=== PATIENT | male | born 1935 | race Caucasian/White ===

== ENCOUNTER → 2016-10-02 | Outpatient (CLI) | payer MEDICARE, BC ==
--- NOTE | 2016-10-02 13:22 | XR ---
EXAMINATION TYPE: XR chest 2V DATE OF EXAM: 10/02/2016 12:23 PM COMPARISON: 06/17/2016 INDICATION: Cough and congestion x1 week TECHNIQUE: Frontal and lateral views of the chest are obtained. FINDINGS: The heart size is normal. The pulmonary vasculature is normal. The lungs are clear. IMPRESSION: 1. No acute pulmonary process.
== END | disposition home or self-care (01) ==
LOC: RADXRMAIN 12:05
PROVIDERS: ATTEND Internal Medicine
DX: R05 Cough (principal); R50.9 Fever, unspecified
CPT/HCPCS: 71020

== ENCOUNTER → 2017-01-12 | Outpatient (CLI) | payer MEDICARE, BC ==
--- NOTE | 2017-01-12 08:28 | CT ---
EXAMINATION TYPE: CT brain wo con DATE OF EXAM: 01/12/2017 7:12 AM COMPARISON: 06/17/2016 and 06/09/2014. HISTORY: 81-year-old male with head Injury TECHNIQUE: Examination was done in axial plane without intravenous contrast. Coronal and sagittal r econstructions performed. CT DLP: 1072.3 mGycm Automated exposure control for dose reduction was used. FINDINGS: There is no evidence of acute intracranial hemorrhage, acute ischemic changes, mass, mass-effect, or extra-axial fluid collection. There is no effacement of cerebral sulci or basal subarachnoid cister ns. There is no midline shift. Moctezuma-white matter distinction is preserved. Stable mild hydrocephalus likely secondary to central cerebral atrophy. Moderate confluent white rachele er hypodensities are also redemonstrated. Redemonstrated lobulated soft tissue mass located intraconal lateral right orbit with mild secondary proptosis. This measures 2.2 cm AP by 2.3 cm craniocaudal by 1.6 cm wide and is not significantly renetta nged from 06/17/2016. The report from orbit MRI 06/25/2014 gives the favored differential of a vascula r malformation. A 1.5 cm lucent lesion within the right calvarium is unchanged from 06/09/2014 compatible with a maria gn etiology. Moderate mucosal thickening left maxillary sinus possibly with a trace air-fluid level. Rightward manuel al septal deviation. Mastoid air cells well pneumatized. IMPRESSION: 1. No acute intracranial abnormality seen. Mild hydrocephalus likely on an ex vacuo basis from centra l cerebral atrophy is unchanged as are the confluent changes of chronic small vessel ischemic disease . 2. Moderate chronic left maxillary sinus disease. Trace air-fluid level could represent superimposed acute sinusitis. 3. 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
== END | disposition home or self-care (01) ==
LOC: RADCTMAIN 06:47
PROVIDERS: ATTEND Internal Medicine
DX: S09.90XA Unspecified injury of head, initial encounter (principal); G91.9 Hydrocephalus, unspecified; G31.9 Degenerative disease of nervous system, unspecified; M89.8X8 Other specified disorders of bone, other site; J34.9 Unspecified disorder of nose and nasal sinuses
CPT/HCPCS: 70450

== ENCOUNTER 2017-01-21 14:29 | Inpatient (IN) | payer MEDICARE, BC ==
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
[2017-01-21] MEDS: IOHEXOL 350 MG/ML 25 ML BOTTLE (ORAL USE) PO PRN ×2 (16:37→17:44)
[2017-01-21] MEDS: SODIUM CHLORIDE 0.9% 1,000 ML IV SCH (16:38)
[2017-01-21 16:55] LABS: Basophils % (A) 0 %; Eosinophils # (A) 0.2 k/uL (0-0.7); Eosinophils % (A) 2 %; HCT 41.1 % (39.0-53.0); HDW 2.63; HGB 13.5 gm/dL (13.0-17.5); Luc # (Auto) 0.17; Luc % (Auto) 2; Lymphocytes # (A) 1.7 k/uL (1.0-4.8); Lymphocytes % (A) 16 %; MCH 28.1 pg (25.0-35.0); MCHC 32.9 g/dL (31.0-37.0); MCV 85.4 fL (80.0-100.0); Monocytes # (A) 0.6 k/uL (0-1.0); Monocytes % (A) 6 %; Neutrophils % (A) 75 %; RBC 4.82 m/uL (4.30-5.90); RDW 13.6 % (11.5-15.5); WBC 10.7 k/uL (3.8-10.6); WBC (Perox) 10.53
[2017-01-21 17:06] LABS: INR 3.7 (<1.1); Prothrombin Time 35.6 sec (9.0-12.0)
[2017-01-21 17:44] LABS: ALT 19 U/L (21-72); AST 19 U/L (17-59); Alkaline Phosphatase 101 U/L (38-126); Amylase 47 U/L (30-110); Anion Gap 12 mmol/L; Blood Urea Nitrogen 14 mg/dL (9-20); Calcium 9.9 mg/dL (8.4-10.2); Carbon Dioxide 28 mmol/L (22-30); Chloride 97 mmol/L (98-107); Glucose 120 mg/dL (74-99); Non-African American GFR(MDRD) >60 (>60 ml/min/1.73 sqM); Potassium 4.3 mmol/L (3.5-5.1); Sodium 137 mmol/L (137-145); Total Protein 6.9 g/dL (6.3-8.2)
[2017-01-21] MEDS ORDERED: ALBUTEROL NEBULIZED 2.5 MG/3 ML INHALATION PRN (18:20)
[2017-01-21] MEDS ORDERED: NITROGLYCERIN SL TABS 0.4 MG TAB SUBLINGUAL PRN (18:20)
[2017-01-21] MEDS: FUROSEMIDE 20 MG TAB PO SCH (19:33)
--- NOTE | 2017-01-21 19:36 | CT ---
EXAMINATION TYPE: CT abdomen pelvis wo con DATE OF EXAM: 01/21/2017 COMPARISON: NONE HISTORY: Pain FINDINGS: LUNG BASES: No evidence for nodule. No evidence for infiltrate. Moderate sliding-type hiatal hernia w ith gastroesophageal reflux. There is evidence of cardiomegaly. LIVER/GB: The gallbladder is unremarkable. Nonspecific lesion of decreased attenuation within the ant erior segment right hepatic lobe measuring 1.1 cm. Metastatic lesion is not excluded. PANCREAS: There is a large pancreatic body mass measuring at least 9.0 x 5.5 cm. A degree of infiltr ation into the adjacent stomach is difficult to exclude. Additional mass in the region of the pancrea tic tail measures 4 cm this may reflect a pancreatic lesion or adenopathy. There are surrounding gianluca pancreatic lymph nodes identified. There may be partial encasement of the SMA. Periportal adenopathy is suspected. Lack of contrast limits evaluation. SPLEEN: No evidence for splenomegaly. No intrasplen ic lesions seen. ADRENALS: No adrenal nodules identified. No evidence for thickening. KIDNEYS: No evidence for renal mass. No nephrolithiasis. No hydronephrosis. BOWEL: Appendix has a normal appearance. No evidence of bowel obstruction. No inflammatory process. Lymph nodes: No evidence for adenopathy greater than 1 cm. Abdominal aorta: Atheromatous changes seen. No evidence for aneurysm. Genital organs: No significant abnormality. Other: Fat-containing inguinal hernias noted.. Multiple lytic lesions of the visualized thoracic and lumbar spines may reflect metastatic disease. IMPRESSION: 1. LARGE PANCREATIC BODY MASS WITH PERIPANCREATIC AND PERIPORTAL ADENOPATHY. ADDITIONAL MASS OR ADENO FLAKITO IN THE REGION OF THE PANCREATIC TAIL. INFILTRATION INTO THE STOMACH IS DIFFICULT TO EXCLUDE PAR TIAL ENCASEMENT OF THE SMA SUSPECTED. 2. I CANNOT EXCLUDE METASTATIC DISEASE TO THE LIVER WITH SOLITARY LESION IDENTIFIED. 3. I CANNOT EXCLUDE METASTATIC DISEASE TO THE VISUALIZED THORACIC AND LUMBAR SPINE. 4. LARGE HIATAL HERNIA WITH GASTROESOPHAGEAL REFLUX.
[2017-01-21] MEDS: ATORVASTATIN 20 MG TAB PO SCH (20:11)
[2017-01-21] MEDS: MONTELUKAST 10 MG TAB PO SCH (20:11)
[2017-01-21] MEDS: DONEPEZIL 10 MG TAB PO SCH (20:11)
[2017-01-21] MEDS ORDERED: LACTULOSE 20 GM/30 ML CUP PO ONE (20:25)
[2017-01-21] MEDS ORDERED: LACTULOSE 20 GM/30 ML CUP PO PRN (22:02)
[2017-01-22] MEDS: ALLOPURINOL 300 MG TAB PO SCH (08:02)
[2017-01-22] MEDS: PANTOPRAZOLE 40 MG TABLET PO SCH (08:02)
[2017-01-22] MEDS: buPROPion XL 150 MG TAB.ER.24H PO SCH (08:02)
[2017-01-22] MEDS: LORATADINE 10 MG TAB PO SCH (08:03)
[2017-01-22] MEDS: METOPROLOL SUCCINATE (ER) 25 MG TAB.ER.24H PO SCH (08:03)
[2017-01-22] MEDS: THEOPHYLLINE 24 HOUR 300 MG CAP.ER.24H PO SCH (08:03)
[2017-01-22] MEDS: FUROSEMIDE 20 MG TAB PO SCH ×2 (08:03→16:41)
[2017-01-22] MEDS: LISINOPRIL 10 MG TAB PO SCH (08:03)
[2017-01-22] MEDS: POTASSIUM CHLORIDE ER 20 MEQ TAB.ER PO SCH (08:04)
[2017-01-22 08:15] LABS: Basophils % (A) 0 %; CH 27.5; CHCM 31.7; Eosinophils # (A) 0.3 k/uL (0-0.7); Eosinophils % (A) 3 %; HCT 40.9 % (39.0-53.0); HDW 2.55; HGB 12.6 gm/dL (13.0-17.5); Hypochromasia Slight; Luc # (Auto) 0.12; Luc % (Auto) 1; Lymphocytes # (A) 1.4 k/uL (1.0-4.8); Lymphocytes % (A) 15 %; MCH 26.7 pg (25.0-35.0); MCHC 30.7 g/dL (31.0-37.0); Mean Platelet Volume 7.4; Monocytes # (A) 0.6 k/uL (0-1.0); Monocytes % (A) 6 %; Neutrophils % (A) 75 %; RDW 13.7 % (11.5-15.5); WBC 9.3 k/uL (3.8-10.6); WBC (Perox) 9.42
[2017-01-22 08:22] LABS: INR 3.7 (<1.1); Prothrombin Time 36.3 sec (9.0-12.0)
[2017-01-22 08:28] LABS: AST 18 U/L (17-59); Alkaline Phosphatase 93 U/L (38-126); Anion Gap 8 mmol/L; Blood Urea Nitrogen 11 mg/dL (9-20); Calcium 9.3 mg/dL (8.4-10.2); Carbon Dioxide 31 mmol/L (22-30); Chloride 99 mmol/L (98-107); Glucose 102 mg/dL (74-99); Non-African American GFR(MDRD) >60 (>60 ml/min/1.73 sqM); Potassium 4.5 mmol/L (3.5-5.1); Sodium 138 mmol/L (137-145); Total Bilirubin 1.1 mg/dL (0.2-1.3); Total Protein 6.2 g/dL (6.3-8.2)
[2017-01-22 08:46] LABS: ALT 27 U/L (21-72)
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
[2017-01-22] MEDS: SENNOSIDES-DOCUSATE SODIUM 1 EACH TAB PO SCH ×2 (11:16→20:58)
[2017-01-22] MEDS: SODIUM CHLORIDE 0.9% 1,000 ML IV SCH (11:58)
[2017-01-22] MEDS: HYDROmorphone 1 MG/ML 1 ML SYRINGE IVP PRN ×2 (12:45→19:22)
[2017-01-22] MEDS ORDERED: ZOLPIDEM 5 MG TAB PO PRN (13:45)
[2017-01-22 14:21] VITALS: BMI 23.5
--- NOTE | 2017-01-22 15:50 | P.PN ---
Subjective Principal diagnosis: Pancreatic mass Patient is an 81-year-old male admitted yesterday with abdominal pain and constipation, computed tomography scan of the abdomen and pelvis revealed evidence of pancreatic mass with possible metastatic disease. Patient is being treated symptomatically. Oncology consultation was requested. On review of systems Patient is alert and oriented 3 There is no fever no chills no headaches no dizziness no cough He is complaining of abdominal pain and constipation Denies any chest pain or shortness of breath no nausea or vomiting no diarrhea and no urinary symptoms Objective - Vital Signs Vital signs: Vital Signs Temp 97.7 F 01/22/17 14:56 Pulse 51 L 01/22/17 14:56 Resp 16 01/22/17 14:56 BP 100/59 01/22/17 14:56 Pulse Ox 97 01/22/17 14:56 Intake & Output 01/21/17 01/22/17 01/22/17 18:59 06:59 18:59 Intake Total 800 400 Balance 800 400 Weight 74.389 kg 74.389 kg Intake: IV 400 Sodium Chloride 0.9% 1, 400 000 ml @ 50 mls/hr IV . Q20H GLO Rx#:[id number] Intake, IV Titration 550 Amount Sodium Chloride 0.9% 1, 550 000 ml @ 50 mls/hr IV . Q20H GLO Rx#:[id number] Oral 250 Other: # Voids 1 - Exam HEENT head normocephalic and atraumatic Neck is supple no JVD no goiter no lymphadenopathy Chest exam reveals a few scattered rhonchi no wheezing Cardiac exam reveals regular heart sounds no gallops no murmurs Abdomen is soft with tenderness in the epigastric area no organomegaly no palpable masses was normal bowel sounds Extremity exam reveals no edema no cyanosis or clubbing - Labs CBC & Chem 7: 01/22/17 07:45 01/22/17 07:45 Labs: Abnormal Lab Results - Last 24 Hours (Table) 01/21/17 01/21/17 01/21/17 Range/Units 16:30 16:30 16:30 WBC 10.7 H (3.8-10.6) k/uL Hgb (13.0-17.5) gm/dL MCHC (31.0-37.0) g/dL Neutrophils # 8.0 H (1.3-7.7) k/uL PT 35.6 H (9.0-12.0) sec Chloride 97 L (98-107) mmol/L Carbon Dioxide (22-30) mmol/L Glucose 120 H (74-99) mg/dL ALT 19 L (21-72) U/L Total Protein (6.3-8.2) g/dL Lipase 339 H (23-300) U/L Carcinoembryonic Ag (0.0-5.0) ng/mL 01/22/17 01/22/17 01/22/17 Range/Units 07:45 07:45 07:45 WBC (3.8-10.6) k/uL Hgb 12.6 L (13.0-17.5) gm/dL MCHC 30.7 L (31.0-37.0) g/dL Neutrophils # (1.3-7.7) k/uL PT 36.3 H (9.0-12.0) sec Chloride (98-107) mmol/L Carbon Dioxide 31 H (22-30) mmol/L Glucose 102 H (74-99) mg/dL ALT (21-72) U/L Total Protein 6.2 L (6.3-8.2) g/dL Lipase (23-300) U/L Carcinoembryonic Ag (0.0-5.0) ng/mL 01/22/17 Range/Units 07:45 WBC (3.8-10.6) k/uL Hgb (13.0-17.5) gm/dL MCHC (31.0-37.0) g/dL Neutrophils # (1.3-7.7) k/uL PT (9.0-12.0) sec Chloride (98-107) mmol/L Carbon Dioxide (22-30) mmol/L Glucose (74-99) mg/dL ALT (21-72) U/L Total Protein (6.3-8.2) g/dL Lipase (23-300) U/L Carcinoembryonic Ag 5.5 H (0.0-5.0) ng/mL Assessment and Plan Plan: #1 pancreatic mass highly suspicious for pancreatic cancer await oncology consult Patient aware of computed tomography scan results, multiple family members in the room also aware, questions and answers to the best of my ability with the available information. Patient and family directed to ask further questions and when Dr. Patel evaluate patient. #2 underlying history of asthma stable at this time #3 underlying history of hypertension well-controlled Continue with current management will follow closely
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
[2017-01-22] MEDS ORDERED: RX INFO: IV CONTRAST WAS GIVEN 1 EACH MISC MISCELLANE PRN (18:36)
[2017-01-22] MEDS ORDERED: PHYTONADIONE ORAL 5 MG/5 ML ORAL.SYRG PO STA (18:36)
[2017-01-22] MEDS: ATORVASTATIN 20 MG TAB PO SCH (20:57)
--- NOTE | 2017-01-22 20:57 | CT ---
EXAMINATION TYPE: CT chest w con DATE OF EXAM: 01/22/2017 COMPARISON: 01/21/2017 HISTORY: Patient complains of some shortness of breath at time of exam. CT DLP: 492 mGycm, Automated exposure control for dose reduction was used. CONTRAST: Performed injected with 100 mL of Omnipaque 300. TECHNIQUE: Axial images were obtained at 5 mm thick sections. Reconstructed images are reviewed on [employer] computer in the coronal plane. FINDINGS: Portion of the thyroid visualized is normal. No suspicious lung nodules or focal infiltrates are present. No enlarged mediastinal or hilar adenopathy is evident. The ascending aorta diameter at the level o f the main pulmonary artery is 3.8 cm. The main pulmonary artery diameter at the bifurcation is 3.5 cm. Coronary artery calcifications present. Limited CT sections are obtained through the upper abdomen. There is a moderately large hiatal hernia present. There is some hypodensity within the right lobe liver which appears low-density measures 1. 1 cm likely represents a cyst. Adjacent is an irregular hypodensity more suspicious for a lesion porsche uring 3.9 x 2.3 cm. A similar appearing irregular hypodensities in the left lobe liver measuring 1.7 cm in diameter. Metastatic lesion should be considered. There is a large mass within the body and tail of the pancreas measuring 5.1 x 6.9 cm suspicious for a pancreatic cancer. IMPRESSIONS: 1. Moderate size hiatal hernia. 2. Suspicious hypodense lesions within the left and right lobes liver. Work up for metastatic disease is recommended. 3. No suspicious changes within the chest.
[2017-01-22] MEDS: MONTELUKAST 10 MG TAB PO SCH (20:58)
[2017-01-22] MEDS: DONEPEZIL 10 MG TAB PO SCH (20:58)
[2017-01-23] MEDS: HYDROmorphone 1 MG/ML 1 ML SYRINGE IVP PRN (03:15)
[2017-01-23] MEDS: SODIUM CHLORIDE 0.9% 1,000 ML IV SCH (05:32)
[2017-01-23 07:33] LABS: Basophils % (A) 0 %; CH 27.7; CHCM 31.6; Eosinophils # (A) 0.2 k/uL (0-0.7); Eosinophils % (A) 2 %; HDW 2.56; HGB 12.9 gm/dL (13.0-17.5); Hypochromasia Slight; Luc # (Auto) 0.13; Luc % (Auto) 1; Lymphocytes # (A) 1.5 k/uL (1.0-4.8); Lymphocytes % (A) 15 %; MCH 28.3 pg (25.0-35.0); MCHC 32.2 g/dL (31.0-37.0); MCV 87.7 fL (80.0-100.0); Mean Platelet Volume 7.3; Monocytes # (A) 0.6 k/uL (0-1.0); Monocytes % (A) 6 %; Neutrophils # (A) 7.4 k/uL (1.3-7.7); Neutrophils % (A) 76 %; RBC 4.56 m/uL (4.30-5.90); RDW 13.8 % (11.5-15.5); WBC 9.8 k/uL (3.8-10.6); WBC (Perox) 9.77
[2017-01-23 07:43] LABS: Prothrombin Time 19.4 sec (9.0-12.0)
[2017-01-23 07:52] LABS: ALT 26 U/L (21-72); AST 17 U/L (17-59); Alkaline Phosphatase 87 U/L (38-126); Anion Gap 7 mmol/L; Blood Urea Nitrogen 7 mg/dL (9-20); Calcium 9.4 mg/dL (8.4-10.2); Carbon Dioxide 31 mmol/L (22-30); Chloride 98 mmol/L (98-107); Glucose 110 mg/dL (74-99); Non-African American GFR(MDRD) >60 (>60 ml/min/1.73 sqM); Potassium 4.5 mmol/L (3.5-5.1); Sodium 136 mmol/L (137-145); Total Bilirubin 0.8 mg/dL (0.2-1.3); Total Protein 5.8 g/dL (6.3-8.2)
[2017-01-23] MEDS: LORATADINE 10 MG TAB PO SCH (08:11)
[2017-01-23] MEDS: LISINOPRIL 10 MG TAB PO SCH (08:11)
[2017-01-23] MEDS: ALLOPURINOL 300 MG TAB PO SCH (08:11)
[2017-01-23] MEDS: buPROPion XL 150 MG TAB.ER.24H PO SCH (08:11)
[2017-01-23] MEDS: METOPROLOL SUCCINATE (ER) 25 MG TAB.ER.24H PO SCH (08:11)
[2017-01-23] MEDS: FUROSEMIDE 20 MG TAB PO SCH ×2 (08:11→15:02)
[2017-01-23] MEDS: THEOPHYLLINE 24 HOUR 300 MG CAP.ER.24H PO SCH (08:11)
[2017-01-23] MEDS: PANTOPRAZOLE 40 MG TABLET PO SCH (08:11)
[2017-01-23] MEDS: SENNOSIDES-DOCUSATE SODIUM 1 EACH TAB PO SCH ×2 (08:12→20:09)
[2017-01-23] MEDS: POTASSIUM CHLORIDE ER 20 MEQ TAB.ER PO SCH (08:12)
[2017-01-23] MEDS: ONDANSETRON 4 MG/2 ML VIAL IVP PRN (09:47)
--- NOTE | 2017-01-23 10:24 | P.PN ---
Subjective 81-year-old male seen and examined this morning chief complaint nausea sensation patient did vomit once clear secretions. Patient's initial presentation abdominal pain constipation. Patient had a CAT scan of the abdomen pelvis it showed evidence of a pancreatic mass with possible metastatic disease. Patients being followed by oncology and GI service. Patient's current Coumadin is on hold GI service indicates they will proceed with an EGD once the INR is 1.5 or less. Colonoscopy is not planned at this time patient did have one done a few years ago. The INR this morning is 2.0 patient states abdominal discomfort persists but is improving Objective - Vital Signs Vital signs: Vital Signs Temp 97.6 F 01/22/17 23:00 Pulse 77 01/23/17 08:00 Resp 16 01/22/17 23:00 BP 118/60 01/22/17 23:00 Pulse Ox 98 01/22/17 23:00 Intake & Output 01/22/17 01/23/17 01/23/17 18:59 06:59 18:59 Intake Total 400 900 420 Output Total 201 Balance 400 699 420 Weight 74.389 kg Intake: IV 400 550 Sodium Chloride 0.9% 1, 400 550 000 ml @ 50 mls/hr IV . Q20H [facility] Rx#:[id number] Oral 350 420 Output: Urine 201 - Exam Physical exam 81-year-old male sitting up on the edge of the bed reports a nausea sensation did vomit once this morning clear secretions pleasant cooperative oriented 3 Lungs essentially clear adequate air movement on room air Heart S1-S2 audible and regular Abdomen slight tenderness to the abdominal wall bowel sounds present nausea sensation Extremities no edema noted - Labs CBC & Chem 7: 01/23/17 06:55 01/23/17 06:55 Labs: Abnormal Lab Results - Last 24 Hours (Table) 01/22/17 01/23/17 01/23/17 Range/Units 07:45 06:55 06:55 Hgb 12.9 L (13.0-17.5) gm/dL PT 19.4 H (9.0-12.0) sec Sodium (137-145) mmol/L Carbon Dioxide (22-30) mmol/L BUN (9-20) mg/dL Glucose (74-99) mg/dL Total Protein (6.3-8.2) g/dL Albumin (3.5-5.0) g/dL Carcinoembryonic Ag 5.5 H (0.0-5.0) ng/mL 01/23/17 Range/Units 06:55 Hgb (13.0-17.5) gm/dL PT (9.0-12.0) sec Sodium 136 L (137-145) mmol/L Carbon Dioxide 31 H (22-30) mmol/L BUN 7 L (9-20) mg/dL Glucose 110 H (74-99) mg/dL Total Protein 5.8 L (6.3-8.2) g/dL Albumin 3.3 L (3.5-5.0) g/dL Carcinoembryonic Ag (0.0-5.0) ng/mL Assessment and Plan Plan: Assessment and Plan Plan: #1 pancreatic mass highly suspicious for pancreatic cancer oncology recommendations reviewed recommending consulting pain service for possible celiac plexus block to help with cancer related pain Patient aware of computed tomography scan results, multiple family members in the room also aware, questions and answers to the best of my ability with the available information. Patient and family directed to ask further questions when Dr. Patel evaluate patient. #2 underlying history of asthma stable at this time #3 underlying history of hypertension well-controlled Continue with current management will follow closely Warfarin induced coagulopathy Atrial fibrillation rate controlled on anticoagulation currently on hold Acute constipation Pancreatic mass as evident on a CAT scan of the abdomen and pelvis Liver mass right lobe Await pain management eval possible celiac plexus block to help with cancer related pain Reviewed GIs recommendations they will proceed with an EGD evaluation once the INR is 1.5 or less. No colonoscopy planned at this time had a colonoscopy a few years ago The above dictated assessment and findings were discussed with dr teran . Impression and the plan of care have been dictated as directed. Melissa Durant nurse practitioner acting as a scribe for dr teran
[2017-01-23] MEDS: DONEPEZIL 10 MG TAB PO SCH (20:08)
[2017-01-23] MEDS: ATORVASTATIN 20 MG TAB PO SCH (20:08)
[2017-01-23] MEDS: MONTELUKAST 10 MG TAB PO SCH (20:09)
[2017-01-23 22:42] VITALS: RESP 16
[2017-01-24] MEDS: SODIUM CHLORIDE 0.9% 1,000 ML IV SCH (04:06)
[2017-01-24] MEDS: HYDROmorphone 1 MG/ML 1 ML SYRINGE IVP PRN ×2 (04:06→15:32)
[2017-01-24 07:23] LABS: Basophils # (A) 0.1 k/uL (0-0.2); Basophils % (A) 1 %; CH 27.4; CHCM 31.8; Eosinophils # (A) 0.2 k/uL (0-0.7); Eosinophils % (A) 2 %; HCT 39.2 % (39.0-53.0); HDW 2.56; HGB 12.6 gm/dL (13.0-17.5); Luc % (Auto) 1; Lymphocytes # (A) 1.6 k/uL (1.0-4.8); Lymphocytes % (A) 15 %; MCH 27.8 pg (25.0-35.0); MCV 86.7 fL (80.0-100.0); Mean Platelet Volume 7.7; Monocytes # (A) 0.5 k/uL (0-1.0); Monocytes % (A) 5 %; Neutrophils # (A) 8.3 k/uL (1.3-7.7); Neutrophils % (A) 77 %; RBC 4.52 m/uL (4.30-5.90); RDW 13.8 % (11.5-15.5); WBC 10.8 k/uL (3.8-10.6)
[2017-01-24 07:32] LABS: INR 1.2 (<1.1); Prothrombin Time 12.3 sec (9.0-12.0)
[2017-01-24 07:37] LABS: ALT 19 U/L (21-72); AST 19 U/L (17-59); Alkaline Phosphatase 86 U/L (38-126); Anion Gap 9 mmol/L; Blood Urea Nitrogen 7 mg/dL (9-20); Calcium 9.3 mg/dL (8.4-10.2); Carbon Dioxide 32 mmol/L (22-30); Chloride 98 mmol/L (98-107); Glucose 107 mg/dL (74-99); Non-African American GFR(MDRD) >60 (>60 ml/min/1.73 sqM); Potassium 4.3 mmol/L (3.5-5.1); Sodium 139 mmol/L (137-145); Total Protein 6.1 g/dL (6.3-8.2)
[2017-01-24] MEDS: THEOPHYLLINE 24 HOUR 300 MG CAP.ER.24H PO SCH (09:02)
[2017-01-24] MEDS: POTASSIUM CHLORIDE ER 20 MEQ TAB.ER PO SCH (09:02)
[2017-01-24] MEDS: METOPROLOL SUCCINATE (ER) 25 MG TAB.ER.24H PO SCH (09:03)
[2017-01-24] MEDS: FUROSEMIDE 20 MG TAB PO SCH ×2 (09:03→17:04)
[2017-01-24] MEDS: ALLOPURINOL 300 MG TAB PO SCH (09:03)
[2017-01-24] MEDS: PANTOPRAZOLE 40 MG TABLET PO SCH (09:03)
[2017-01-24] MEDS: LORATADINE 10 MG TAB PO SCH (09:03)
[2017-01-24] MEDS: LISINOPRIL 10 MG TAB PO SCH (09:03)
[2017-01-24] MEDS: buPROPion XL 150 MG TAB.ER.24H PO SCH (09:05)
[2017-01-24] MEDS: SENNOSIDES-DOCUSATE SODIUM 1 EACH TAB PO SCH ×2 (09:08→20:53)
--- NOTE | 2017-01-24 09:51 | P.PN ---
Subjective 81-year-old being seen and examined this morning currently is sitting up on the edge of the bed taking a diet states I do not really have any appetite take a few bites and a really don't want to eat anymore. Patient states the nausea sensation has improved. He should states abdominal pain persists but the pain medication has been "helpful" Did note the INR is down to 1.2 this morning currently the Coumadin is on hold. GI service indicates they will proceed with an EGD once the INR is 1.5 or less. Colonoscopy is not indicated at this time secondary to patient having reportedly had one several years ago with no acute findings per patient report patient's initial presentation was with abdominal pain constipation. Did have a CAT scan of the abdomen pelvis it did show evidence of a pancreatic mass with possible metastatic disease. Patient's currently being followed by oncology and GI service Objective - Vital Signs Vital signs: Vital Signs Temp 98 F 01/24/17 07:00 Pulse 87 01/24/17 07:00 Resp 16 01/24/17 07:00 BP 140/85 01/24/17 07:00 Pulse Ox 96 01/24/17 07:00 Intake & Output 01/23/17 01/24/17 01/24/17 18:59 06:59 18:59 Intake Total 820 1140 Balance 820 1140 Weight 74.389 kg Intake: IV 400 200 Sodium Chloride 0.9% 1, 400 200 000 ml @ 50 mls/hr IV . Q20H [facility] Rx#:[id number] Oral 420 940 Other: # Voids 2 # Bowel Movements 1 - Exam Physical exam 81-year-old male sitting up on the as the bed states no appetite states abdominal pain persist but the pain medication effective for pain control. Patient reports no nausea. Pleasant cooperative oriented 3 Lungs essentially clear adequate air movement on room air Heart S1-S2 audible irregular denying chest pain Abdomen flat not distended diffuse tenderness states no difficulty in urinating no frequent stools Extremities no edema noted below the knee GRIS canela on - Labs CBC & Chem 7: 01/24/17 07:01 01/24/17 07:01 Labs: Abnormal Lab Results - Last 24 Hours (Table) 01/22/17 01/24/17 01/24/17 Range/Units 07:45 07:01 07:01 WBC 10.8 H (3.8-10.6) k/uL Hgb 12.6 L (13.0-17.5) gm/dL Neutrophils # 8.3 H (1.3-7.7) k/uL PT 12.3 H (9.0-12.0) sec Carbon Dioxide (22-30) mmol/L BUN (9-20) mg/dL Glucose (74-99) mg/dL ALT (21-72) U/L Total Protein (6.3-8.2) g/dL Albumin (3.5-5.0) g/dL CA 19-9 Antigen 2862.2 H (0.0-34.9) U/mL 01/24/17 Range/Units 07:01 WBC (3.8-10.6) k/uL Hgb (13.0-17.5) gm/dL Neutrophils # (1.3-7.7) k/uL PT (9.0-12.0) sec Carbon Dioxide 32 H (22-30) mmol/L BUN 7 L (9-20) mg/dL Glucose 107 H (74-99) mg/dL ALT 19 L (21-72) U/L Total Protein 6.1 L (6.3-8.2) g/dL Albumin 3.4 L (3.5-5.0) g/dL CA 19-9 Antigen (0.0-34.9) U/mL Assessment and Plan Plan: Assessment and Plan Plan: #1 pancreatic mass highly suspicious for pancreatic cancer oncology recommendations reviewed recommending consulting pain service for possible celiac plexus block to help with cancer related pain Patient aware of computed tomography scan results, multiple family members in the room also aware, questions and answers to the best of my ability with the available information. Patient and family directed to ask further questions when Dr. Patel evaluate patient. #2 underlying history of asthma stable at this time #3 underlying history of hypertension well-controlled Continue with current management will follow closely Warfarin induced coagulopathy Atrial fibrillation rate controlled on anticoagulation currently on hold Acute constipation Pancreatic mass as evident on a CAT scan of the abdomen and pelvis Liver mass right lobe Await pain management eval possible celiac plexus block to help with cancer related pain Reviewed GIs recommendations they will proceed with an EGD evaluation once the INR is 1.5 or less. No colonoscopy planned at this time had a colonoscopy a few years ago will notify today GI service at the INR is 1.2 possible EGD tomorrow on the january The above dictated assessment and findings were discussed with dr teran . Impression and the plan of care have been dictated as directed. Melissa Durant nurse practitioner acting as a scribe for dr teran
[2017-01-24] MEDS: MEGESTROL 400 MG/10 ML CUP PO SCH (13:28)
[2017-01-24] MEDS: ONDANSETRON 4 MG/2 ML VIAL IVP PRN (15:32)
[2017-01-24] MEDS: ATORVASTATIN 20 MG TAB PO SCH (20:53)
[2017-01-24] MEDS: DONEPEZIL 10 MG TAB PO SCH (20:54)
[2017-01-24] MEDS: MONTELUKAST 10 MG TAB PO SCH (20:54)
[2017-01-25 07:09] LABS: Basophils % (A) 0 %; CH 27.6; CHCM 31.8; Eosinophils # (A) 0.2 k/uL (0-0.7); Eosinophils % (A) 2 %; HCT 44.9 % (39.0-53.0); HDW 2.55; Luc # (Auto) 0.11; Luc % (Auto) 1; Lymphocytes # (A) 1.7 k/uL (1.0-4.8); Lymphocytes % (A) 15 %; MCH 27.1 pg (25.0-35.0); MCHC 31.1 g/dL (31.0-37.0); MCV 87.1 fL (80.0-100.0); Mean Platelet Volume 7.3; Monocytes # (A) 0.5 k/uL (0-1.0); Monocytes % (A) 4 %; Neutrophils # (A) 8.8 k/uL (1.3-7.7); Neutrophils % (A) 78 %; RBC 5.16 m/uL (4.30-5.90); RDW 13.9 % (11.5-15.5); WBC 11.3 k/uL (3.8-10.6); WBC (Perox) 11.85
[2017-01-25 07:20] LABS: INR 1.2 (<1.1); Prothrombin Time 11.8 sec (9.0-12.0)
[2017-01-25] MEDS: METOPROLOL SUCCINATE (ER) 25 MG TAB.ER.24H PO SCH (07:30)
[2017-01-25 07:48] LABS: ALT 22 U/L (21-72); AST 23 U/L (17-59); Alkaline Phosphatase 93 U/L (38-126); Anion Gap 13 mmol/L; Blood Urea Nitrogen 9 mg/dL (9-20); Calcium 9.5 mg/dL (8.4-10.2); Carbon Dioxide 28 mmol/L (22-30); Chloride 98 mmol/L (98-107); Glucose 98 mg/dL (74-99); Non-African American GFR(MDRD) >60 (>60 ml/min/1.73 sqM); Sodium 139 mmol/L (137-145); Total Bilirubin 1.3 mg/dL (0.2-1.3); Total Protein 6.9 g/dL (6.3-8.2)
[2017-01-25] MEDS ORDERED: LACTATED RINGERS 1,000 ML IV SCH (08:45)
[2017-01-25] MEDS ORDERED: ePHEDrine 50 MG/ML 1 ML AMP ONE (09:03)
[2017-01-25] MEDS ORDERED: BUPIVACAINE (PF) 0.5% 30 ML VIAL ONE (09:03)
[2017-01-25] MEDS ORDERED: MIDAZOLAM 2 MG/2 ML VIAL ONE (09:03)
[2017-01-25] MEDS ORDERED: DEXAMETHASONE SOD PHOS (MDV) 100 MG/10 ML VIAL ONE (09:03)
--- NOTE | 2017-01-25 09:36 | P.PCN ---
Date of Procedure: 01/25/17 Preoperative Diagnosis: Postoperative Diagnosis: Procedure(s) Performed: Implants: Surgeon: Justyn France Pathology: none sent Condition: stable Disposition: PACU Indications for Procedure: Operative Findings: Description of Procedure: PREOPERATIVE DIAGNOSIS: Intractable abdominal pain secondary to pancreatic cancer. POSTOPERATIVE DIAGNOSIS: Same. PROCEDURE: Diagnostic celiac plexus block with fluoroscopy ANESTHESIA: Local anesthesia with 1% lidocaine and conscious sedation EBL: Minimal IV FLUIDS: Approximately 1000 mL of crystalloid PROCEDURE INDICATION: The patient has a history of abdominal pain secondary to pancreatic cancer that has been unresponsive to conservative treatment PROCEDURE DESCRIPTION: The patient was seen and identified in the preoperative area. Risks, benefits, complications, and alternatives were discussed with the patient including bleeding, infection, nerve damage, allergic reactions to medications, low blood pressure, and diarrhea. The patient agreed to proceed with the procedure and signed the informed consent after all questions were answered. IV was started, and vital signs were stable. Patient was taken to the OR and time out was completed to verify proper patient , area of pain, and allergies to medications. The patient was placed in the prone position on procedure table and a pillow was placed under the abdomen to reduce lumbar lordosis. The lumbosacral area was prepped and draped in the usual sterile fashion. Critical pause was taken. Vital signs were closely monitored during the procedure. Conscious sedation was used during the procedure to decrease patients anxiety. The procedure was performed in a similar fashion on the right side and on the left side. Using anterior-posterior fluoroscopy, the L1 spinous process and vertebral body were identified. Then, the fluoroscope was turned obliquely until the transverse process of L1 vertebra was totally behind the L1 vertebral body. Skin was then marked and infiltrated with Lidocaine 1% subcutaneously with a 25-gauge needle at the level of the L1 vertebral body. Subsequently, a 22 -gauge 5-inch needle was inserted and advanced toward the the anterior side of the L1 vertebral body under oblique fluoroscopic guidance and while keeping a tunnel view of the needle. Subsequently, 8 ml of the water soluble dye Omnipaque was injected under life fluoroscopy to confirm needle position. The spread of the dye along the anterior side of the L1 vertebral body was verified with AP and latter fluoroscopy. After satisfactory positioning of the needle and negative aspiration for CSF, blood, or any other contents, a total of 20 mL of preservative-free bupivacaine 0.5% with 1:200,000 epinephrine was injected with 5 ml increments and intermittent aspiration. Vital signs remained stable. Subsequently, a total of 10 mL of absolute alcohol was injected with 5 ml increments and intermittent aspiration after negative aspiration for CSF, blood , or any other contents. Washout of the dye was seen and the needle was then withdrawn intact. Procedure was done bilaterally using the same technique on the right and left sides. A total of 20 ml of preservative-free bupivacaine 0.5 % and 20 ml of absolute alcohol was used during the procedure. At the end of the procedure, the operated areas were cleaned. Band-Aids were applied. COMPLICATIONS: None. COMMENTS: DISPOSITION / PLANS: The patient was placed in a supine position and transferred to the recovery area in a stable condition for observation and was discharged from the recovery room after meeting discharge criteria. Patient had improvement in his pain after the procedure and will return to the inpatient floor for further management per hospitalist and GI teams. Please monitor for hypotension and diarrhea.
[2017-01-25] MEDS: SODIUM CHLORIDE 0.9% 1,000 ML IV SCH (09:39)
--- NOTE | 2017-01-25 09:51 | FL ---
EXAMINATION TYPE: FL guided pain mgmt statistic DATE OF EXAM: 01/25/2017 CLINICAL HISTORY: Pancreatic cancer TECHNIQUE: Fluoroscopy. COMPARISON: None. FINDINGS: Fluoroscopic guidance was provided during abdominal pain relief pain relief procedure perf ormed by anesthesiologist. A total of 68 seconds of fluoroscopic time was utilized during the proced ure and 3 spot images are acquired. Images acquired shows needle localization in the upper to mid ab domen near aorta. IMPRESSION: As Above.
--- NOTE | 2017-01-25 12:20 | P.PN ---
Subjective Pancreatic mass Patient underwent celiac plexus block today for better pain control. He is scheduled for EGD today with possible biopsy. INR 1.2 Coumadin on hold for procedure today. Patient lying in bed comfortably. Pain is tolerable. He had been having episodes of nausea yesterday no vomiting. Decrease in appetite. Did have a bowel movement yesterday. Denies any chest pain or shortness of breath. Denies any difficulty urinating. Objective - Vital Signs Vital signs: Vital Signs Temp 98 F 01/25/17 08:54 Pulse 81 01/25/17 08:54 Resp 16 01/25/17 08:54 BP 135/76 01/25/17 08:54 Pulse Ox 99 01/25/17 08:54 Intake & Output 01/24/17 01/25/17 01/25/17 18:59 06:59 18:59 Intake Total 200 550 100 Output Total 200 500 Balance 0 550 -400 Weight 74.389 kg 74.389 kg Intake: IV 550 100 Sodium Chloride 0.9% 1, 550 000 ml @ 50 mls/hr IV . Q20H [facility] Rx#:[id number] Oral 200 Output: Urine 200 500 Other: Voiding Method Toilet # Voids 2 1 1 # Bowel Movements 1 - Exam Head normocephalic Neck supple Lungs clear to auscultation bilaterally no wheezing or crackles Heart regular rate and rhythm S1-S2, no rub or gallop Abdomen is soft epigastric tenderness nondistended positive bowel sounds no hepatosplenomegaly Extremities no edema Neuro alert and orientated to 3 - Labs CBC & Chem 7: 01/25/17 06:46 01/25/17 06:46 Labs: Abnormal Lab Results - Last 24 Hours (Table) 01/25/17 Range/Units 06:46 WBC 11.3 H (3.8-10.6) k/uL Neutrophils # 8.8 H (1.3-7.7) k/uL Assessment and Plan Plan: 1. Pancreatic mass highly suspicious for pancreatic cancer. CA-19-9 elevated at 2862, CEA level elevated 5.5. Patient underwent celiac plexus block with pain service today. He is also scheduled for EGD. Case discussed with oncology. They reported if EGD does not find the target lesion, likely due to the size of the pancreatic mass CT-guided biopsy with IR could be done. Also noted to have a liver mass in the right lobe 2. Acute constipation on admission. Patient has had bowel movement 3. History of atrial fibrillation: Maintained on metoprolol Coumadin currently on hold for today's procedures. INR 1.2. 4. History of TIA 5. History of coronary artery disease and myocardial infarction with previous CABG 6. Hyperlipidemia 7. history of Mitral valve replacement 8. History of asthma: Stable no evidence of exacerbation 9. Essential hypertension I performed an examination of the patient and discussed their management with the physician Fender Mechanic. I have reviewed the Physician Fender Mechanic's notes and agree with the documented findings and plan of care
[2017-01-25] MEDS ORDERED: IV FLUID CONTINUATION 900 ML IV ONE (15:26)
[2017-01-25] MEDS ORDERED: PROPOFOL 10 MG/ML 20 ML VIAL IV ONE (15:29)
--- NOTE | 2017-01-25 16:07 | P.PCN ---
Date of Procedure: 01/25/17 Preoperative Diagnosis: Postoperative Diagnosis: Procedure(s) Performed: Procedure: Esophagogastroduodenoscopy and biopsy. Preoperative diagnosis: Pancreatic mass. Postoperative diagnosis: 1. Moderately sized hiatal hernia with no obvious esophagitis or complicated reflux disease. 2. Normal stomach without any intraluminal abnormalities noted. 3. Prominent folds in the duodenum in the vicinity of the papilla biopsy. Preparation and sedation: Was provided by anesthesia. Brief clinical history: The patient is an 81-year-old male who was admitted to the hospital because of abdominal pain and weight loss. The patient has atrial fibrillation and was on Coumadin. CT of the abdomen and pelvis showed large pancreatic body mass measuring 9 x 5.5 cm. A degree of infiltration into the adjacent stomach is difficult to exclude according to the radiologist. Additional mass in the pancreatic tail measuring 4 cm with surrounding adenopathy and. Pancreatic lymph nodes noted. Possible partial encasement of the SMA. Metastatic disease to the liver with 1.1 cm solitary lesion right hepatic lobe cannot be excluded. The details are summarized in the history and physical and dictated consultations and progress notes. This evaluation is to try to obtain biopsies of the pancreatic mass if it is found involving the stomach or duodenum. Procedure: With the patient on his left lateral decubitus position and after informed consent and adequate sedation, I passed the Olympus-GIF 160 video upper endoscope through the cricopharyngeus down the esophagus. GE junction was around 36 cm from the incisors and there was a moderately sized hiatal hernia. The esophagus did not show any obvious abnormalities. The stomach was insufflated with air and inspected in detail including the retroflex view in the cardia. No obvious abnormalities were seen to correspond to the mass in the body of the pancreas. Pyloric channel did not show any ulcers or pathology. Duodenal bulb post bulbar area and descending duodenum were examined. There was a prominent fold in the vicinity of the papilla along the medial aspect of the descending duodenum which I biopsied. Unlikely to represent the pancreatic pathology. The patient tolerated the procedure well. Plan: I summarized the findings to the patient. Consideration can be given to obtain biopsies with CT guidance by the interventional radiologist if biopsies are negative. Implants: Indications for Procedure: Operative Findings: Description of Procedure:
[2017-01-25] MEDS: SENNOSIDES-DOCUSATE SODIUM 1 EACH TAB PO SCH ×2 (16:25→20:24)
[2017-01-25] MEDS: FUROSEMIDE 20 MG TAB PO SCH ×2 (16:25→18:10)
[2017-01-25] MEDS: LISINOPRIL 10 MG TAB PO SCH (16:25)
[2017-01-25] MEDS: MEGESTROL 400 MG/10 ML CUP PO SCH (16:25)
[2017-01-25] MEDS: POTASSIUM CHLORIDE ER 20 MEQ TAB.ER PO SCH (16:25)
[2017-01-25] MEDS: buPROPion XL 150 MG TAB.ER.24H PO SCH (16:25)
[2017-01-25] MEDS: ALLOPURINOL 300 MG TAB PO SCH (16:25)
[2017-01-25] MEDS: PANTOPRAZOLE 40 MG TABLET PO SCH (16:25)
[2017-01-25] MEDS: LORATADINE 10 MG TAB PO SCH (16:25)
[2017-01-25] MEDS: THEOPHYLLINE 24 HOUR 300 MG CAP.ER.24H PO SCH (16:26)
[2017-01-25] MEDS: DONEPEZIL 10 MG TAB PO SCH (20:24)
[2017-01-25] MEDS: ATORVASTATIN 20 MG TAB PO SCH (20:24)
[2017-01-25] MEDS: MONTELUKAST 10 MG TAB PO SCH (20:24)
[2017-01-26 07:37] LABS: Basophils % (A) 0 %; CHCM 33.4; Eosinophils % (A) 0 %; HCT 39.5 % (39.0-53.0); HDW 2.64; Luc # (Auto) 0.13; Luc % (Auto) 1; Lymphocytes # (A) 1.5 k/uL (1.0-4.8); Lymphocytes % (A) 10 %; MCH 27.8 pg (25.0-35.0); MCHC 32.9 g/dL (31.0-37.0); MCV 84.3 fL (80.0-100.0); Mean Platelet Volume 7.2; Monocytes # (A) 0.7 k/uL (0-1.0); Monocytes % (A) 5 %; Neutrophils # (A) 13.4 k/uL (1.3-7.7); Neutrophils % (A) 85 %; RBC 4.69 m/uL (4.30-5.90); RDW 13.9 % (11.5-15.5); WBC 15.9 k/uL (3.8-10.6); WBC (Perox) 16.01
[2017-01-26 07:39] VITALS: BP 108/58; PULSE 75; TEMP 98
[2017-01-26 07:56] LABS: ALT 24 U/L (21-72); AST 21 U/L (17-59); Alkaline Phosphatase 89 U/L (38-126); Anion Gap 9 mmol/L; Blood Urea Nitrogen 14 mg/dL (9-20); Carbon Dioxide 28 mmol/L (22-30); Chloride 101 mmol/L (98-107); Glucose 114 mg/dL (74-99); Non-African American GFR(MDRD) >60 (>60 ml/min/1.73 sqM); Potassium 4.2 mmol/L (3.5-5.1); Sodium 138 mmol/L (137-145); Total Bilirubin 0.7 mg/dL (0.2-1.3); Total Protein 5.9 g/dL (6.3-8.2)
[2017-01-26] MEDS: buPROPion XL 150 MG TAB.ER.24H PO SCH ×2 (09:21→10:21)
[2017-01-26] MEDS: THEOPHYLLINE 24 HOUR 300 MG CAP.ER.24H PO SCH ×2 (09:21→10:22)
[2017-01-26] MEDS: LORATADINE 10 MG TAB PO SCH ×2 (09:21→11:28)
[2017-01-26] MEDS: LISINOPRIL 10 MG TAB PO SCH ×2 (09:21→10:20)
[2017-01-26] MEDS: FUROSEMIDE 20 MG TAB PO SCH (09:23)
[2017-01-26] MEDS: ALLOPURINOL 300 MG TAB PO SCH ×2 (09:23→10:21)
[2017-01-26] MEDS: PANTOPRAZOLE 40 MG TABLET PO SCH ×2 (09:23→10:22)
[2017-01-26] MEDS: MEGESTROL 400 MG/10 ML CUP PO SCH (09:23)
[2017-01-26] MEDS: POTASSIUM CHLORIDE ER 20 MEQ TAB.ER PO SCH ×2 (09:24→10:23)
[2017-01-26] MEDS: METOPROLOL SUCCINATE (ER) 25 MG TAB.ER.24H PO SCH ×2 (09:24→10:23)
[2017-01-26] MEDS: SENNOSIDES-DOCUSATE SODIUM 1 EACH TAB PO SCH (09:30)
--- NOTE | 2017-01-26 09:51 | P.PN ---
Progress Note - Text Discharge planning with hospice possibly today
[2017-01-26] MEDS: HYDROmorphone 1 MG/ML 1 ML SYRINGE IVP PRN (10:33)
--- NOTE | 2017-01-26 14:11 | P.DS ---
Providers Date of admission: 01/21/17 14:55 Expected date of discharge: 01/26/17 Attending physician: Andrés Ruvalcaba Consults: 01/21/17 20:30 Consult Physician Routine Consulting Provider: Sony Patel Consult Reason/Comments: Pancratic Mass Do you want consulting provider notified?: Yes 01/22/17 23:44 Consult Physician Routine Consulting Provider: Reyna Bundy Consult Reason/Comments: Celiac plexus block- pain from pancreatic cancer Do you want consulting provider notified?: Yes Primary care physician: [facility] Course: diagnosis on discharge: 1. Pancreatic mass highly suspicious for pancreatic cancer. CA-19-9 elevated at 2862, CEA level elevated 5.5. Patient underwent celiac plexus block with pain service today. He is also had EGD. Case discussed with oncology. They reported if EGD does not find the target lesion, likely due to the size of the pancreatic mass CT-guided biopsy with IR could be done. Also noted to have a liver mass in the right lobe different modalities of treatment discussed with patient he opted to proceed with hospice care. 2. Acute constipation on admission. Responded to conservative management. Patient has had bowel movement 3. History of atrial fibrillation: Maintained on metoprolol Coumadin currently on hold for today's procedures. INR 1.2. 4. History of TIA 5. History of coronary artery disease and myocardial infarction with previous CABG 6. Hyperlipidemia 7. history of Mitral valve replacement 8. History of asthma: Stable no evidence of exacerbation 9. Essential hypertension 10. Intractable pain trated with IV dilaudid patient also underwent Celiac plexus block Plan - Discharge Summary New Discharge Prescriptions: New Megestrol [Megace] 800 mg PO DAILY dose Sennosides-Docusate Sodium [Senokot-S] 2 each PO BID tab Zolpidem [Ambien] 5 mg PO HS PRN tab PRN Reason: Insomnia Continue Potassium Chloride [Klor-Con 20] 20 meq PO DAILY Montelukast [Singulair] 10 mg PO HS Enalapril [Vasotec] 5 mg PO QAM Simvastatin [Zocor] 40 mg PO HS Omeprazole [PriLOSEC] 20 mg PO AC-BRKFST Metoprolol Succinate (ER) [Toprol XL] 25 mg PO DAILY Loratadine [Claritin] 10 mg PO DAILY Allopurinol [Zyloprim] 300 mg PO DAILY Furosemide [Lasix] 20 mg PO BID Theophylline Anhydrous [Theophylline] 200 mg PO TID Albuterol Sulfate [Proair Hfa] 2 puff INHALATION RT-Q6H PRN PRN Reason: Shortness Of Breath buPROPion XL [Wellbutrin XL] 150 mg PO DAILY Nitroglycerin [Nitroglycerin 400MCG [place]] 1 spray TRANSLINGU Q5M PRN PRN Reason: Chest Pain Discontinued Warfarin [Coumadin] 5 mg PO PC-SUPPER Rivastigmine Tartrate [Rivastigmine] 3 mg PO BID Discharge Medication List Allopurinol [Zyloprim] 300 mg PO DAILY 06/09/14 [History] Enalapril [Vasotec] 5 mg PO QAM 06/09/14 [History] Loratadine [Claritin] 10 mg PO DAILY 06/09/14 [History] Metoprolol Succinate (ER) [Toprol XL] 25 mg PO DAILY 06/09/14 [History] Montelukast [Singulair] 10 mg PO HS 06/09/14 [History] Omeprazole [PriLOSEC] 20 mg PO AC-BRKFST 06/09/14 [History] Potassium Chloride [Klor-Con 20] 20 meq PO DAILY 06/09/14 [History] Simvastatin [Zocor] 40 mg PO HS 06/09/14 [History] Furosemide [Lasix] 20 mg PO BID 12/13/14 [History] Theophylline Anhydrous [Theophylline] 200 mg PO TID 06/18/16 [History] Albuterol Sulfate [Proair Hfa] 2 puff INHALATION RT-Q6H PRN 01/21/17 [History] Nitroglycerin [Nitroglycerin 400MCG [place]] 1 spray TRANSLINGU Q5M PRN 01/21/17 [ History] buPROPion XL [Wellbutrin XL] 150 mg PO DAILY 01/21/17 [History] Megestrol [Megace] 800 mg PO DAILY dose 01/26/17 [Rx] Sennosides-Docusate Sodium [Senokot-S] 2 each PO BID tab 01/26/17 [Rx] Zolpidem [Ambien] 5 mg PO HS PRN tab 01/26/17 [Rx] Activity/Diet/Wound Care/Special Instructions: season hospice -
--- NOTE | 2017-01-26 16:59 | P.PN ---
Subjective Principal diagnosis: abd pain Pt seen today in follow up, he had nerve block and states good improvement in his pain control, he denies any acute physical c/o, he is eating small amts, no current pain, his family is at bedside. Objective - Vital Signs Vital signs: Vital Signs Temp 98 F 01/26/17 07:39 Pulse 75 01/26/17 07:39 Resp 16 01/26/17 07:39 BP 108/58 01/26/17 07:39 Pulse Ox 96 01/26/17 07:39 Intake & Output 01/25/17 01/26/17 01/26/17 18:59 06:59 18:59 Intake Total 865 1280 Output Total 500 Balance 365 1280 Weight 74.389 kg Intake: IV 625 560 Sodium Chloride 0.9% 1, 375 560 000 ml @ 50 mls/hr IV . Q20H [facility] Rx#:[id number] Oral 240 720 Output: Urine 500 Other: Voiding Method Toilet Toilet Toilet # Voids 4 1 2 # Bowel Movements 1 - Constitutional General appearance: Present: cooperative, no acute distress, thin - EENT Eyes: Present: normal appearance - Peripheral edema leg Peripheral Edema: bilateral: None - Musculoskeletal Musculoskeletal: Present: strength equal bilaterally - Psychiatric Psychiatric: Present: A&O x's 3, appropriate affect - Labs CBC & Chem 7: 01/26/17 07:09 01/26/17 07:09 Labs: Abnormal Lab Results - Last 24 Hours (Table) 01/26/17 01/26/17 Range/Units 07:09 07:09 WBC 15.9 H (3.8-10.6) k/uL Neutrophils # 13.4 H (1.3-7.7) k/uL Glucose 114 H (74-99) mg/dL Total Protein 5.9 L (6.3-8.2) g/dL Albumin 3.3 L (3.5-5.0) g/dL Assessment and Plan (1) Pancreatic mass Narrative/Plan: It was discussed with pt and family that pancreatic cancer is highly suspected but cannot confirm diagnosis without tissue biopsy. It has already been discussed among pt and family that they do not want chemotherapy so, diagnosis for family planning would be reasonable as would forgoing biopsy. Pt and family decided on hospice and the pt will be discharged on the same. Status: Acute
== END 2017-01-26 14:40 | disposition hospice, home (50) | DRG 436 ==
LOC: 5MS5E 14:55 → 5ONC 21:09
PROVIDERS: ADMIT Internal Medicine; ATTEND Internal Medicine
PROC: 3E0T3CZ (ICD-10-PCS; 2017-01-25)
PROC: 0DB98ZX Excision of Duodenum, Via Natural or Artificial Opening Endoscopic, Diagnostic (ICD-10-PCS; principal; 2017-01-25 07:30)
DX: C25.9 Malignant neoplasm of pancreas, unspecified (principal); C78.7 Secondary malignant neoplasm of liver and intrahepatic bile duct; I48.91 Unspecified atrial fibrillation; Z95.1 Presence of aortocoronary bypass graft; Z99.81 Dependence on supplemental oxygen; E78.5 Hyperlipidemia, unspecified; I10 Essential (primary) hypertension; I25.10 Atherosclerotic heart disease of native coronary artery without angina pectoris; I25.2 Old myocardial infarction; J45.909 Unspecified asthma, uncomplicated; K21.9 Gastro-esophageal reflux disease without esophagitis; K44.9 Diaphragmatic hernia without obstruction or gangrene; K59.00 Constipation, unspecified; M10.9 Gout, unspecified; R79.1 Abnormal coagulation profile; T45.515A Adverse effect of anticoagulants, initial encounter; Z79.01 Long term (current) use of anticoagulants; Z79.899 Other long term (current) drug therapy; Z80.0 Family history of malignant neoplasm of digestive organs; Z82.49 Family history of ischemic heart disease and other diseases of the circulatory system; Z86.73 Personal history of transient ischemic attack (TIA), and cerebral infarction without residual deficits; Z87.891 Personal history of nicotine dependence; Z95.2 Presence of prosthetic heart valve; Z96.1 Presence of intraocular lens; Z88.6 Allergy status to analgesic agent; Z88.0 Allergy status to penicillin; Z88.2 Allergy status to sulfonamides; M17.0 Bilateral primary osteoarthritis of knee; Z96.652 Presence of left artificial knee joint; R59.0 Localized enlarged lymph nodes; G89.3 Neoplasm related pain (acute) (chronic); Z87.01 Personal history of pneumonia (recurrent)
CPT/HCPCS: 43239; 64530; 71260; 74176; 80053; 82105; 82150; 82378; 83690; 85025; 85610; 86301; 88305